=== PATIENT | female | born 1995 | race Caucasian/White ===

== ENCOUNTER 2017-08-28 11:25 | Emergency (ER) | payer OTHER ==
--- NOTE | 2017-08-28 11:31 | ED Physician Documentation ---
Allergy Symptoms - HISTORIAN Historian: patient - HPI Stated Complaint: allergic reaction Chief Complaint: Allergic Reaction Onset: minutes (10) Duration: continues in ED Associated Symptoms: denies: skin rash, diffuse hives Swelling: throat Shortness of Breath: none Trouble Swallowing/ Speaking: none Identified Cause: yes (nuts) Context: Food Exposure: nuts Where: home - ROS EYES/ENT: none CVS/RESP: none GI/: none CONST: none. denies: fever, chills - PAST HX Prior Allergic Reaction: hives, rash Medical History: none Immunizations: referred to PCP Allergies/Adverse Reactions: Allergies Allergy/AdvReac Type Severity Reaction Status Date / Time No Known Allergies Allergy Verified 12/07/15 21:58 Home Medications: Ambulatory Orders Medication Instructions Recorded Cephalexin [Keflex] 500 mg PO TID #30 capsule 12/07/15 Epinephrine [Epipen 2-Del] 0.3 mg IM 1T PRN #1 ml 08/28/17 predniSONE [Deltasone] 20 mg PO BID #4 tablet 08/28/17 - SOCIAL HX Smoking History: non-smoker Alcohol Use: none Drug Use: none - FAMILY HX Family History: No - VITAL SIGNS Vital Signs: Vital Signs Temp Pulse Resp BP Pulse Ox 130/78 12/07/15 22:46 - REVIEWED ASSESSMENTS Nursing Assessment Reviewed: Yes Progress - Progress Progress: post IV meds almost all symptoms resolved, pharyngeal swelling gone, tonsil remained enlarged. Allergy Symptons Exam - EXAM General Appearance: alert, mild distress HEENT: pharynx (mild pharyngeal swelling, enlarged tonsils) Skin: no rash, nml color Extremities: non-tender, nml ROM, no edema Neck: nml inspection Respiratory: no resp. distress, breath sounds nml, respiratory distress. No: wheezes, rales, rhonchi CVS: reg rate & rhythm, heart sounds normal Abdomen: non-tender, no organomegaly, nml bowel sounds, no distention Neuro: oriented X3, cognition normal Discharge Clincal Impression: Allergic reaction to food Qualifiers: Encounter type: initial encounter Qualified Code(s): T78.1XXA - Other adverse food reactions, not elsewhere classified, initial encounter Prescriptions: Epinephrine [Epipen 2-Del] 0.3 mg IM 1T PRN #1 ml PRN Reason: allergic reaction predniSONE [Deltasone] 20 mg PO BID #4 tablet Referrals: Primary Doctor,No [Primary Care Provider] - 2 Days Additional Instructions: Take prednisone 20mg twice a day for today and tomorrow. Take Bendryl 25mg tablets 1-2 tablets as needed for allergic reaction. If you have any further problems to return to the ED. Use Epipen as instructed if needed. Make sure you avoid nuts. Condition: Stable Disposition: 01 HOME, SELF-CARE Decision to Admit: NO Date of Decison to Admit: 08/28/17 Decision Time: 12:15
[2017-08-28] MEDS: EPINEPHrine/PF 1 MG/1 ML 1:1000 SUBCUT ONE (11:38)
[2017-08-28] MEDS: diphenhydrAMINE HCL 50 MG/ML VIAL IVP ONE (11:42)
[2017-08-28] MEDS: methylPREDNISolone SOD SUCC 125 MG/2 ML VIAL IVP ONE (11:42)
[2017-08-28 12:26] VITALS: BP 121/79
== END 2017-08-28 12:18 | disposition home or self-care (01) ==
LOC: ED 11:25
DX: T78.1XXA Other adverse food reactions, not elsewhere classified, initial encounter (principal); X58.XXXA Exposure to other specified factors, initial encounter; Y93.9 Activity, unspecified; Y99.9 Unspecified external cause status
CPT/HCPCS: J0171; J1200; J2930; 96372; 99283; S1016

== ENCOUNTER 2019-05-19 01:08 | Emergency (ER) | payer SELFPAY ==
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
[2019-05-19 01:26] VITALS: BP 150/93
[2019-05-19] MEDS: ACETAMINOPHEN 500 MG TABLET PO ONE (01:26)
== END 2019-05-19 01:31 | disposition home or self-care (01) ==
LOC: ED 01:08
DX: S01.81XA Laceration without foreign body of other part of head, initial encounter (principal); Y04.8XXA Assault by other bodily force, initial encounter; Y07.04 Female partner, perpetrator of maltreatment and neglect; Y92.019 Unspecified place in single-family (private) house as the place of occurrence of the external cause; Y93.89 Activity, other specified
CPT/HCPCS: 99283; 99284